=== PATIENT | male | born 1980 | race African-American/Black ===

== ENCOUNTER 2018-02-14 16:27 | Emergency (ER) | payer OTHER ==
--- NOTE | 2018-02-14 17:04 | ER Document Report ---
HPI - HPI Patient complains to provider of: Fell at [place] Onset: Other - 230 this afternoon Onset/Duration: Sudden Quality of pain: Throbbing Pain Level: 3 Context: 37-year-old male slipped on water and the floor and Wednesdays and fell his posterior left shoulder. He is complaining of lumbar back pain and left upper sacral pain. He does detail work on cars. No saddle anesthesia or radiculopathy. Associated Symptoms: None Exacerbated by: Movement, Walking Relieved by: Denies Similar symptoms previously: No Recently seen / treated by doctor: No - ROS ROS below otherwise negative: Yes Systems Reviewed and Negative: Yes All other systems reviewed and negative Past Medical History - General Information source: Patient - Social History Smoking Status: Unknown if Ever Smoked Frequency of alcohol use: None Drug Abuse: None Occupation: Car detail Lives with: Spouse/Significant other Family History: Reviewed & Not Pertinent - Medical History Medical History: Negative Surgical Hx: Negative Vertical Provider Document - CONSTITUTIONAL Agree With Documented VS: Yes Exam Limitations: No Limitations General Appearance: No Apparent Distress - INFECTION CONTROL TRAVEL OUTSIDE OF THE [place] IN LAST 30 DAYS: No - HEENT HEENT: Normocephalic Notes: Tender left trapezius posterior shoulder - NECK Neck: Supple - MUSCULOSKELETAL/EXTREMETIES Musculoskeletal/Extremeties: MAEW, FROM, Tender - Superior mid L spine. negative: Eccymosis - NEURO Level of Consciousness: Awake, Alert Motor/Sensory: No Motor Deficit, No Sensory Deficit - DERM Integumentary: No Rash Course - Re-evaluation Re-evalutation: 02/14/18 17:49 Imaging is negative per radiologist will send home with Motrin prescription a work note - Vital Signs Vital signs: Temp Pulse Resp BP Pulse Ox 98.8 F 89 13 153/86 H 97 02/14/18 16:42 02/14/18 16:42 02/14/18 16:42 02/14/18 16:42 02/14/18 16:42 Discharge - Discharge Clinical Impression: Low back pain after fall, Left shoulder and scapula pain after fal Condition: Good Disposition: HOME, SELF-CARE Instructions: Contusion ([facility]), Ibuprofen (General) ([facility]), Acetaminophen, Low Back Pain ([facility]), Shoulder Injury ([facility]) Additional Instructions: Motrin and Tylenol for pain Warm compress to sore areas Work note for today and tomorrow Expect to hurt more tomorrow from the fall. Return to the emergency room and worsening of the symptoms Prescriptions: Ibuprofen [Motrin 800 mg Tablet] 800 mg PO Q8HP PRN #30 tablet PRN Reason: Forms: Return to Work Referrals: CUBA AHMADI MD [ACTIVE STAFF] - Follow up as needed
[2018-02-14] MEDS ORDERED: ACETAMINOPHEN 325 MG TABLET PO ONE (17:11)
[2018-02-14] MEDS ORDERED: IBUPROFEN 800 MG TABLET PO ONE (17:11)
--- NOTE | 2018-02-14 17:45 | RADIOLOGY REPORT (SQ) ---
EXAM DESCRIPTION: L SPINE WHOLE COMPLETED DATE/TIME: 02/14/2018 5:36 pm REASON FOR STUDY: fell at [place] COMPARISON: None. NUMBER OF VIEWS: Five views including obliques. TECHNIQUE: AP, lateral, oblique, and sacral radiographic images acquired of the lumbar spine. LIMITATIONS: None. FINDINGS: MINERALIZATION: Normal. SEGMENTATION: Normal. No transitional anatomy. ALIGNMENT: Normal. VERTEBRAE: Maintained height. No fracture or worrisome bone lesion. DISCS: Preserved height. No significant osteophytes or end plate irregularity. POSTERIOR ELEMENTS: Pedicles and facets are intact. No pars defect or posterior arch defects. HARDWARE: None in the spine. PARASPINAL SOFT TISSUES: Normal. PELVIS: Intact as visualized. No fractures or worrisome bone lesions. SI joints intact. OTHER: No other significant finding. IMPRESSION: No significant findings. TECHNICAL DOCUMENTATION: JOB ID: [id number] [employer]- All Rights Reserved Reading location - IP/workstation name: [email or web address]
--- NOTE | 2018-02-14 17:48 | RADIOLOGY REPORT (SQ) ---
EXAM DESCRIPTION: SHOULDER LEFT 2 OR MORE VIEWS COMPLETED DATE/TIME: 02/14/2018 5:36 pm REASON FOR STUDY: fell at [place] COMPARISON: None. NUMBER OF VIEWS: Three views. TECHNIQUE: Internal rotation, external rotation, and Y view images acquired of the left shoulder. LIMITATIONS: None. FINDINGS: MINERALIZATION: Normal. BONES: No acute fracture or dislocation. No worrisome bone lesions. JOINTS: No dislocation. VISUALIZED LUNGS AND RIBS: No pneumothorax. No rib fracture. SOFT TISSUES: No radiopaque foreign body. OTHER: No other significant finding. IMPRESSION: NEGATIVE STUDY OF THE LEFT SHOULDER. NO RADIOGRAPHIC EVIDENCE OF ACUTE INJURY. TECHNICAL DOCUMENTATION: JOB ID: [id number] [email or web address]- All Rights Reserved Reading location - IP/workstation name: [email or web address]
--- NOTE | 2018-02-14 17:48 | RADIOLOGY REPORT (SQ) ---
EXAM DESCRIPTION: SCAPULA LEFT COMPLETED DATE/TIME: 02/14/2018 5:36 pm REASON FOR STUDY: fell [place] COMPARISON: None. TECHNIQUE: AP and lateral views of the left scapula LIMITATIONS: None. FINDINGS: No evidence for acute fracture dislocation is seen. No other significant bony abnormaliti es are identified. No radiopaque foreign body is seen. IMPRESSION: No significant findings. TECHNICAL DOCUMENTATION: JOB ID: [id number] [employer]- All Rights Reserved Reading location - IP/workstation name: [email or web address]
[2018-02-14 18:34] VITALS: BP 150/105
== END 2018-02-14 18:50 | disposition home or self-care (01) ==
LOC: ER 16:27
DX: M54.5 Low back pain (principal); M53.3 Sacrococcygeal disorders, not elsewhere classified; W01.0XXA Fall on same level from slipping, tripping and stumbling without subsequent striking against object, initial encounter; Y92.511 Restaurant or cafe as the place of occurrence of the external cause
CPT/HCPCS: 72110; 99283

== ENCOUNTER 2019-03-07 09:01 | Emergency (ER) | payer OTHER ==
[2019-03-07] MEDS ORDERED: IBUPROFEN 800 MG TABLET PO ONE (10:38)
[2019-03-07] MEDS ORDERED: CLINDAMYCIN HCL 150 MG CAPSULE PO ONE (10:38)
[2019-03-07] MEDS ORDERED: HYDROCODONE/ACETAMINOPHEN 5-325 MG TABLET PO ONE (10:38)
[2019-03-07] MEDS ORDERED: LIDOCAINE 2% VISCOUS SOLN 20 ML UDCUP PO ONE (10:38)
--- NOTE | 2019-03-07 10:40 | ER Document Report ---
HPI - HPI Patient complains to provider of: dental infection Time Seen by Provider: 03/07/19 10:26 Onset: This morning Onset/Duration: Gradual Quality of pain: Achy Pain Level: 3 Context: Patient states that he has had dental pain off and on for some time but he woke with swelling today. Patient states he broke his tooth a few months ago. Patient denies any fever. Associated Symptoms: Other - Dental pain. denies: Fever Exacerbated by: Denies Relieved by: Denies Similar symptoms previously: Yes Recently seen / treated by doctor: No - ROS ROS below otherwise negative: Yes Systems Reviewed and Negative: Yes All other systems reviewed and negative - CONSTITUTIONAL Constitutional: REPORTS: Chills - EENT Notes: Dental pain - GASTROINTESTINAL Gastrointestinal: DENIES: Nausea, Patient vomiting - DERM Skin Color: Normal Skin Problems: None Past Medical History - General Information source: Patient - Social History Smoking Status: Never Smoker Frequency of alcohol use: None Drug Abuse: None Lives with: Family Family History: Reviewed & Not Pertinent Patient has suicidal ideation: No Patient has homicidal ideation: No Pulmonary Medical History: Reports: Hx Asthma - as a child Renal/ Medical History: Denies: Hx Peritoneal Dialysis Surgical Hx: Negative Vertical Provider Document - CONSTITUTIONAL Agree With Documented VS: Yes Exam Limitations: No Limitations General Appearance: WD/WN, No Apparent Distress - INFECTION CONTROL TRAVEL OUTSIDE OF THE [place] IN LAST 30 DAYS: No - HEENT HEENT: Atraumatic, Normocephalic. negative: Pharyngeal Exudate, Pharyngeal T enderness, Pharyngeal Erythema, Tympanic Membrane Red, Tympanic Membrane Bulging Mouth Diagram: 1 - dental decay, gingival abscess, no trismus, no sublingual swelling - NECK Neck: Normal Inspection, Supple. negative: Lymphadenopathy-Left, Lymph adenopathy-Right - RESPIRATORY Respiratory: Breath Sounds Normal, No Respiratory Distress - CARDIOVASCULAR Cardiovascular: Regular Rate, Regular Rhythm - BACK Back: Normal Inspection - MUSCULOSKELETAL/EXTREMETIES Musculoskeletal/Extremeties: MAEW - NEURO Level of Consciousness: Awake, Alert, Appropriate Motor/Sensory: No Motor Deficit - DERM Integumentary: Warm, Dry, No Rash Course - Vital Signs Vital signs: Temp Pulse Resp BP Pulse Ox 98.5 F 85 18 153/97 H 97 03/07/19 09:07 03/07/19 09:07 03/07/19 09:07 03/07/19 09:07 03/07/19 09:07 Procedures - Incision and Drainage Left Face Type: Simple Incision Method: Incision made with needle Notes: 03/07/19 11:45 Attempted incision and drainage with needle to the gingival abscess, patient pulling away after insertion of needle, only bloody drainage return. Patient did report improvement of his pain symptoms though after the procedure. Discharge - Discharge Clinical Impression: Dental abscess Condition: Stable Disposition: HOME, SELF-CARE Instructions: Clindamycin ([facility]), Dentist, Dental Infection or Abscess ([facility]), Toothache ([facility]) Additional Instructions: Return immediately for any new or worsening symptoms Followup with your primary care provider, call tomorrow to make a followup appointment Follow-up with a dental care provider for further evaluation, call today for an appointment Prescriptions: Acetaminophen with Codeine [Tylenol #3 Tablet] 1 each PO Q6HP PRN #10 tablet PRN Reason: Clindamycin HCl [Cleocin 300 mg Capsule] 300 mg PO TID #21 capsule Naproxen [Naprosyn 250 Nmg Tablet] 1 tab PO BID #14 tablet Forms: Return to Work Referrals: [facility] [Provider Group] - Follow up as needed
[2019-03-07 12:02] VITALS: BP 145/101
== END 2019-03-07 12:01 | disposition home or self-care (01) ==
LOC: ER 09:01
DX: K04.7 Periapical abscess without sinus (principal); K02.9 Dental caries, unspecified; K08.89 Other specified disorders of teeth and supporting structures; R68.83 Chills (without fever)
CPT/HCPCS: 41800; 99282; J3490